=== PATIENT | male | born 1980 | race Asian ===

== ENCOUNTER 2018-04-29 05:56 | Emergency (ER) | payer OTHER ==
[~2018-04-29] VITALS: Ht 157.5 cm; Wt 47.0 kg
[2018-04-29 06:05] VITALS: BP 119/75
[2018-04-29] MEDS ORDERED: TETanus/Pertussis (Acell)/Diphther VAC/PF (Tdap-Adult) 0.5ml syringe IM ONE (06:20)
[2018-04-29] MEDS ORDERED: LIDOcaine 1% w/epiNEPHrine 1:200,000 30ml vial IM ONE (06:20)
--- NOTE | 2018-04-29 07:37 | NUR ---
TETANUS VACCINE GIVEN. WOUND CLEANSED WITH NORMAL SALINE FLUSH. TOLERATED WELL.
== END 2018-04-29 08:12 | disposition home or self-care (01) ==
LOC: ER 05:58
DX: S71.111A Laceration without foreign body, right thigh, initial encounter (principal); G89.29 Other chronic pain; F17.200 Nicotine dependence, unspecified, uncomplicated; W26.8XXA Contact with other sharp object(s), not elsewhere classified, initial encounter; Y93.89 Activity, other specified; Y92.89 Other specified places as the place of occurrence of the external cause; Y99.8 Other external cause status
CPT/HCPCS: 12002; 90471; 90715; 99283; J3490